=== PATIENT | male | born 1995 | race African-American/Black ===

== ENCOUNTER 2017-11-21 22:12 | Emergency (ER) | payer SELFPAY ==
[~2017-11-21] VITALS: Ht 188 cm; Wt 72.6 kg
[2017-11-21] MEDS ORDERED: NKM (22:19)
[2017-11-21 23:24] VITALS: BP 128/82
--- NOTE | 2017-11-21 23:55 | Emergency Room Report ---
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 He denies loss of consciousness. He also denies drugs or alcohol. He denies chest pain, abdominal pain or other extremity pain. pain 10/10, ankle, more lateral. No numbness. Constant pain and worsened when foot dependant and when tries to ambulate. This patient states that he's it is safe living situation. He denies medical problems. Allergies: Coded Allergies: No Known Allergies (Unverified , 11/21/17) Patient History Social History: Denies: smoking, alcohol use, drug use Social History Narrative home (although this is questionable as patient has suitcases) Reviewed Nursing Documentation: PMH: Agreed, PSxH: Agreed Nursing Documentation-PMH Past Medical History: No Stated History Review of Systems All Other Systems: negative except mentioned in HPI Physical Exam Vital Signs Date Time Temp Pulse Resp B/P (MAP) Pulse Ox O2 Delivery O2 Flow Rate FiO2 11/21/17 22:20 98.8 100 18 133/82 100 Room Air Sp02 EP Interpretation: reviewed, normal General Appearance: well appearing, no apparent distress, GCS 15 Head: normocephalic Eyes: bilateral eye PERRL, bilateral eye EOMI - no nystagmus, bilateral eye Scleral Injection ENT: hearing grossly normal, no angioedema, moist mucus membranes Neck: supple, no bony tend Respiratory: chest non-tender, lungs clear, normal breath sounds Cardiovascular #1: regular rate, rhythm Cardiovascular #2: 2+ radial (R) Gastrointestinal: normal inspection, normal bowel sounds, non tender, no mass, non-distended Musculoskeletal: back normal, gait/station normal, normal range of motion, other - Ligaments stable in ankle, no numbness. No 5th metatarsal tenderness. Neurologic: alert, oriented x3, motor strength/tone normal, DTRs symmetric, sensory intact, grossly normal Psychiatric: no suicidal/homicidal ideation, depressed affect Skin: normal inspection, warm/dry Medical Decision Making Diagnostic Impression: Primary Impression: Right ankle sprain Qualified Codes: S93.411A - Sprain of calcaneofibular ligament of right ankle , initial encounter ER Course Patient presents with injury to his right ankle. Differential includes fracture , strain, contusion amongst others. X-rays are indicated. Analgesia will be given if needed. The patient is sleeping at this time. Possibly more complex hx X-rays are negative for fracture. A splint is applied. Position is excellent and neurovascular is normal as checked by me. The patient is stable for outpatient observation and treatment. Other X-Ray Diagnostic Results Other X-Ray Diagnostic Results : X-Ray ordered: ankle # of Views/Limited Vs Complete: 3 View Indication: Pain Interpretation: no dislocation, no soft tissue swelling, no fractures Impression: No acute disease Electronically Signed by: Abdiel Mendoza MD Last Vital Signs Date Time Temp Pulse Resp B/P (MAP) Pulse Ox O2 Delivery O2 Flow Rate FiO2 11/22/17 00:49 98.8 88 18 130/82 100 Room Air Status: improved Disposition: HOME, SELF-CARE Condition: Improved Scripts Ibuprofen* (MOTRIN*) 600 Mg Tablet 600 MG ORAL Q6H Y for For Pain, #16 TAB Prov: Abdiel Mendoza M.D. 11/22/17 Referrals: NOT CHOSEN [facility]/,REFERRING (PCP) Abdiel Mendoza M.D. Nov 21, 2017 23:55
[2017-11-22] MEDS ORDERED: IBUPROFEN600 MG ORAL (00:38)
[2017-11-22 00:48] VITALS: BP 130/82
[2017-11-22 00:49] VITALS: BP 130/82
--- NOTE | 2017-11-22 08:51 | Diagnostic Imaging Report ---
Indication: Reason For Exam: TRAUMA Technique: 3 views of the right ankle Comparison: none Findings: No acute fractures. No dislocations. Joint spaces are preserved. Normal mineralization. No radiopaque foreign body. Impression: Negative This agrees with the preliminary interpretation provided by the emergency room physician
== END 2017-11-22 01:00 | disposition home or self-care (01) ==
LOC: EDBD 22:12 → EMR 22:23
DX: S93.401A Sprain of unspecified ligament of right ankle, initial encounter (principal); W10.9XXA Fall (on) (from) unspecified stairs and steps, initial encounter; Y92.9 Unspecified place or not applicable
CPT/HCPCS: 99283